=== PATIENT | female | born 1985 | race Caucasian/White ===

== ENCOUNTER 2021-08-27 23:26 | Emergency (ER) | payer OTHER ==
[2021-08-28 00:51] LABS: BASOPHIL 0.6 % (0-2); EOSINOPHIL 0.4 % (0-5); HCT 41.5 % (37.0-47.0); HGB 14.3 g/dl (12.5-16.0); MCHC 34.5 g/dL (32.0-36.0); MCV 92.8 fL (78.0-100.0); MONOCYTE 10.9 % (0-12); MPV 10.7 fL (6.0-9.5); NEUTROPHIL 68.7 % (41-80); NRBC 0; PLT 262 K/uL (150-400); RBC 4.47 M/uL (4.20-5.40); RDW 12.5 % (11.5-14.0); WBC 9.9 K/uL (4.0-10.5)
[2021-08-28 00:54] LABS: INR 1.08 (0.9-1.2); PROTHROMBIN TIME 13.7 SECONDS (11.9-13.9); PTT 28.6 SECONDS (24.9-34.6)
[2021-08-28 01:16] LABS: ALKALINE PHOSHATASE 66 U/L (46-116); ALT 13 U/L (14-59); AST 14 U/L (15-37); BILIRUBIN - TOTAL 0.3 mg/dL (0.2-1.0); BUN 13 mg/dL (7-18); CHLORIDE 103 mmol/L (98-107); CO2 (BICARBONATE) 24 mmol/L (21-32); CREATININE 0.81 mg/dL (0.51-0.95); GLOBULIN (CALCULATION) 2.9 g/dL; GLUCOSE 87 mg/dL (74-106); LDH 156 U/L (81-234); LIPASE 75 U/L (73-393); MAGNESIUM 2.1 mg/dL (1.8-2.4); POTASSIUM 4.1 mmol/L (3.5-5.1); TOTAL PROTEIN 6.9 g/dL (6.4-8.2)
[2021-08-28] MEDS ORDERED: PERCOCET 7.5-31 EACH PO (04:51)
== END 2021-08-28 05:10 | disposition home or self-care (01) ==
LOC: FER 23:26
PROVIDERS: Emergency Medicine
DX: S23.29XA Dislocation of other parts of thorax, initial encounter (principal); S20.213A Contusion of bilateral front wall of thorax, initial encounter; F17.210 Nicotine dependence, cigarettes, uncomplicated; Z28.310 Unvaccinated for COVID-19; V49.40XA Driver injured in collision with unspecified motor vehicles in traffic accident, initial encounter
CPT/HCPCS: 36415; 70450; 71260; 72125; 73130; 80053; 83540; 83615; 83690; 83735; 84484; 85025; 85610; 85730; 93005; G0480; J1170; J2405; J7030; Q9967

== ENCOUNTER 2021-10-26 09:44 | Emergency (ER) | payer OTHER ==
[~2021-10-26 09:44] MED LIST: PERCOCET 7.5-31 EACH PO
== END 2021-10-26 10:50 | disposition home or self-care (01) ==
LOC: FER 09:44
DX: R07.89 Other chest pain (principal); F17.210 Nicotine dependence, cigarettes, uncomplicated
CPT/HCPCS: 71046